=== PATIENT | male | born 1975 ===

== ENCOUNTER 2017-06-14 14:40 | Emergency (ER) | payer OTHER ==
[~2017-06-14] VITALS: Ht 193 cm; Wt 117.9 kg
[2017-06-14] MEDS ORDERED: IBU800 M1 PO (15:03)
== END 2017-06-14 15:27 | disposition home or self-care (01) ==
LOC: ED 14:40
DX: M70.21 Olecranon bursitis, right elbow (principal); Y93.89 Activity, other specified